=== PATIENT | male | born 1955 | race Caucasian/White ===

== ENCOUNTER 2017-03-29 09:33 | Observation (INO) | payer OTHER, BC ==
[~2017-03-29] VITALS: Ht 185.4 cm; Wt 120.0 kg
[2017-03-29] VITALS (9 sets, daily range): BP systolic 137–172; BP diastolic 70–88; PULSE 71–90; RESP 16–21; TEMP 97.7–98.4; O2SAT 93–99
[2017-03-29] MEDS ORDERED: SODIUM CHLORIDE 0.9% FLUSH 10 ML FLUSH IVF PRN (10:00)
[2017-03-29] MEDS ORDERED: ONDANSETRON HCL 4 MG/2 ML VIAL IV PUSH ONE (10:00)
[2017-03-29] MEDS ORDERED: MORPHINE SULFATE 8 MG/ML INJ IV PUSH ONE ×2 (10:00→12:00)
[2017-03-29 10:20] LABS: AUTOMATED NEUTROPHIL # 5.3 TH/MM3 (1.8-7.7); BASOPHIL % 0.4 % (0.0-2.0); EOSINOPHIL # 0.2 TH/MM3 (0-0.4); HEMATOCRIT 41.9 % (39.0-51.0); HEMO FLAGS DIFF FINAL; LYMPH % 17.1 % (9.0-44.0); LYMPHOCYTE # 1.3 TH/MM3 (1.0-4.8); MEAN CELL VOLUME 79.9 FL (80.0-100.0); MEAN CORPUSCULAR HEMOGLOBIN 25.9 PG (27.0-34.0); MEAN CORPUSCULAR HGB CONC 32.5 % (32.0-36.0); MONO % 8.7 % (0.0-8.0); NEUT % 70.8 % (16.0-70.0); PLATELET COUNT 212 TH/MM3 (150-450); RED BLOOD COUNT 5.24 MIL/MM3 (4.50-5.90); RED CELL DISTRIBUTION WIDTH 15.8 % (11.6-17.2); WHITE BLOOD COUNT 7.5 TH/MM3 (4.0-11.0)
[2017-03-29] MEDS ORDERED: LOSA100T2 PO (10:24)
[2017-03-29] MEDS ORDERED: VITA1000 PO (10:24)
[2017-03-29] MEDS ORDERED: ASPI81CH3 PO (10:24)
[2017-03-29] MEDS ORDERED: HUMALOG SQ (10:24)
[2017-03-29] MEDS ORDERED: METO25TA3 PO (10:24)
[2017-03-29] MEDS ORDERED: PLAV75TA29 PO (10:24)
[2017-03-29 10:25] LABS: ANION GAP 12 MEQ/L (5-15); BICARBONATE 23.2 MEQ/L (21.0-32.0); BLOOD UREA NITROGEN 9 MG/DL (7-18); CHLORIDE 103 MEQ/L (98-107); GLOMERULAR FILTRATION RATE 74 ML/MIN (>89); POTASSIUM 3.1 MEQ/L (3.5-5.1); SODIUM (NA) 138 MEQ/L (136-145)
[2017-03-29 10:27] LABS: APTT (PATIENT) 25.9 SEC (24.3-30.1); PROTHROMBIN TIME - PATIENT 11.4 SEC (9.8-11.6)
[2017-03-29 10:34] LABS: CREATINE KINASE 100 U/L (39-308)
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
[2017-03-29] MEDS ORDERED: LIDOCAINE HCL 2% PF 5 ML VIAL NERV BLOCK ONE (12:00)
[2017-03-29] MEDS ORDERED: PROMETHAZINE INJ 25 MG/ML VIAL IM ONE (12:00)
[2017-03-29] MEDS ORDERED: DIPHTH/TETANUS/ACEL PERTUSSIS (BOOSTER) 0.5 ML VIAL/PFS IM ONE (12:00)
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
[2017-03-29] MEDS ORDERED: ASPIRIN 325 MG TAB PO ONE (12:30)
[2017-03-29] MEDS ORDERED: CEPHALEXIN MONOHYDRATE 500 MG CAP PO ONE (12:45)
[2017-03-29] MEDS ORDERED: ASPIRIN EC 81 MG TABEC PO ONE (12:45)
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
[2017-03-29] MEDS ORDERED: POTASSIUM CHLORIDE 10 MEQ CONTROLLED RELEASE TAB PO ONE (13:00)
[2017-03-29] MEDS ORDERED: INSULIN HUMAN REGULAR 1,000 UNITS/10 ML VIAL IV PUSH ONE (13:00)
[2017-03-29] MEDS ORDERED: ACETAMINOPHEN 500 MG CPLT PO PRN (13:30)
[2017-03-29] MEDS ORDERED: NITROGLYCERIN 0.4 MG SL 25 TABS/BTL SL PRN (13:30)
[2017-03-29] MEDS ORDERED: ONDANSETRON HCL 4 MG/2 ML VIAL IV PRN (13:30)
[2017-03-29 14:35] LABS: CREATINE KINASE 121 U/L (39-308)
--- NOTE | 2017-03-29 14:44 | RADRPT ---
EXAM DATE/TIME: 03/29/2017 13:56 [facility] COMPARISON: WRIST RIGHT COMPLETE ([id number]), March 29, 2017, 10:29. INDICATIONS : Post reduction. MEDICAL HISTORY : None. SURGICAL HISTORY : None. ENCOUNTER: Initial ACUITY: 1 day PAIN SCORE: 0/10 LOCATION: Right wrist FINDINGS: 2 views of the right wrist were performed with splint material in place. There has been successful re duction of the previously seen displacement at the fracture site. Acute fractures are again noted inv olving the ulnar styloid as well as the distal radius. No angulation or distraction. CONCLUSION: Successful reduction of the displacement of the radial fracture as detailed above. Sean Ruiz Jr., MD on March 29, 2017 at 14:27 Board Certified Radiologist. This report was verified electronically.
[2017-03-29 14:47] LABS: CKMB 0.9 NG/ML (0.5-3.6)
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
[2017-03-29] MEDS ORDERED: GLUCAGON 1 MG/ML VIAL OTHER PRN (15:00)
[2017-03-29] MEDS ORDERED: DEXTROSE 50% IN WATER 50 ML VIAL(D50) IV PRN (15:00)
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
[2017-03-29] MEDS: INSULIN ASPART SUPPLEMENTAL SCALE SQ SCH ×2 (16:00→21:31)
[2017-03-29] MEDS: MORPHINE SULFATE 8 MG/ML INJ IV PUSH PRN ×2 (16:18→21:43)
[2017-03-29] MEDS ORDERED: AMLO10TA2 PO (16:40)
[2017-03-29] MEDS ORDERED: ATOR1TAB18 PO (16:40)
[2017-03-29] MEDS ORDERED: ALPR0.5T3 PO (16:40)
[2017-03-29] MEDS ORDERED: AZEL137S EACH NARE (16:44)
[2017-03-29] MEDS ORDERED: DAPA1TAB3 PO (16:44)
[2017-03-29] MEDS ORDERED: NOVOINJ3 SQ (16:44)
[2017-03-29] MEDS ORDERED: METF1000 PO (16:46)
[2017-03-29] MEDS ORDERED: TAMS0.4C4 PO (16:46)
[2017-03-29] MEDS ORDERED: INSU1.2I SQ (16:46)
--- NOTE | 2017-03-29 16:46 | EKG ---
Date Performed: 03/29/2017 Time Performed: 09:42:40 PTAGE: 61 years EKG: Sinus rhythm NONSPECIFIC T-WAVE ABNORMALITY BORDERLINE ECG NO PREVIOUS TRACING DOCTOR: Dimas Moscoso Interpretating Date/Time 03/29/2017 16:45:15
[2017-03-29] MEDS: NITROGLYCERIN 2% OINT 1 GM PACKET TOPICAL SCH (17:28)
[2017-03-29 17:52] LABS: CREATINE KINASE 152 U/L (39-308)
[2017-03-29 18:05] LABS: CKMB 1.3 NG/ML (0.5-3.6)
[2017-03-29] MEDS ORDERED: ATORVASTATIN 80 MG TAB PO SCH (21:00)
[2017-03-29] MEDS: METOPROLOL TARTRATE 25 MG TAB PO SCH (21:13)
[2017-03-29] MEDS: TAMSULOSIN HCL 0.4 MG CAP PO SCH (21:32)
[2017-03-29] MEDS: SODIUM CHLORIDE 0.9% FLUSH 10 ML FLUSH IV FLUSH SCH (21:32)
[2017-03-30] VITALS (10 sets, daily range): BP systolic 149–168; BP diastolic 83–87; PULSE 66–78; RESP 16–20; TEMP 98.1–99.4; O2SAT 92–100
[2017-03-30] MEDS: MORPHINE SULFATE 8 MG/ML INJ IV PUSH PRN ×3 (02:27→15:21)
[2017-03-30] MEDS: NITROGLYCERIN 2% OINT 1 GM PACKET TOPICAL SCH ×3 (02:29→17:26)
[2017-03-30] MEDS: INSULIN ASPART SUPPLEMENTAL SCALE SQ SCH ×4 (06:33→21:00)
[2017-03-30 08:40] LABS: BICARBONATE 28.8 MEQ/L (21.0-32.0); POTASSIUM 3.4 MEQ/L (3.5-5.1)
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
[2017-03-30] MEDS ORDERED: HYDROCHLOROTHIAZIDE 25 MG TAB PO SCH (09:00)
[2017-03-30] MEDS ORDERED: LOSARTAN 50 MG TAB PO SCH (09:00)
[2017-03-30] MEDS: METOPROLOL TARTRATE 25 MG TAB PO SCH ×2 (09:00→21:11)
[2017-03-30] MEDS: CLOPIDOGREL 75 MG TAB PO SCH (09:00)
[2017-03-30] MEDS ORDERED: ASPIRIN 325 MG TAB PO SCH (09:00)
[2017-03-30] MEDS ORDERED: HEPARIN-NS/PF INJ 500 ML ONE (09:58)
[2017-03-30] MEDS ORDERED: MIDAZOLAM HCL 2 MG/2 ML VIAL ONE ×2 (09:59→10:21)
[2017-03-30] MEDS ORDERED: HEPARIN SODIUM - IV 10,000 UNITS/10 ML VIAL ONE (10:50)
[2017-03-30] MEDS ORDERED: ATROPINE SULFATE 1 MG/ML VIAL IV PRN (11:30)
[2017-03-30] MEDS ORDERED: MISC INFORMATION XX ONE (11:30)
[2017-03-30] MEDS ORDERED: LORazepam 2 MG/ML VIAL IV PRN (11:30)
[2017-03-30] MEDS ORDERED: MORPHINE SULFATE 8 MG/ML INJ IV PUSH PRN (11:30)
[2017-03-30] MEDS ORDERED: ONDANSETRON HCL 4 MG/2 ML VIAL IV PRN (11:30)
[2017-03-30] MEDS ORDERED: LIDOCAINE HCL 1% 50 ML VIAL INFIL PRN (11:30)
[2017-03-30] MEDS ORDERED: cloNIDine HCL 0.2 MG TAB PO PRN (11:30)
[2017-03-30] MEDS ORDERED: SODIUM CHLOR 0.9% 250 ML INJ 250 ML IV PRN (11:30)
[2017-03-30] MEDS ORDERED: METOCLOPRAMIDE HCL 10 MG/2 ML VIAL IV PRN (11:30)
[2017-03-30] MEDS ORDERED: BACITRACIN OINT 0.9 GM PKT TOP ONE (11:30)
--- NOTE | 2017-03-30 11:30 | CATHPROC ---
[facility] HIS Report Study Information Study Number Admission Scheduled Start Study Start [id number] Mar 29 2017 12:42PM 03/30/2017 Mar 30 2017 9:37AM [facility] Cardiac Catheterization Admit Source Facility Department Emergency department [facility] - Web Administrator Physician and Clinical Staff Initial [facility] Huber Padilla,RAINA Recorder Mayuri Ny,RT(R) (BS) Scrub José Antonio McmillanRT(R) Procedures Performed Procedure Location (Site) Vessel Name Coronary Angiograms LCA Left Coronary Coronary Angiograms RCA Right Coronary Drug Eluting Inflatio LAD Mid Left Coronary L Heart Cath PTCA LAD Mid Left Coronary PTCA ADD ON'S Wire insertion Fem Art (right) Femoral Art Equipment Time Patient Registration Rep Description Size Mfg Part Number Used/Scraped COPILOT VALVE, BLEEDBACK [id number] 10:45 [employer] Used CONTROL *[id number] TRANSDUCER, TRUWAVE [id number] 09:59 GORE LAN * Used W/STOCKCOCK *[id number] 538-420 *[id number] 538-422 *[id number] 538-421 *[id number] *[id number] 11:14 DAIG/ST. LINDA MEDICAL ANGIOSEAL, FR6 VIP FR 6 Used *[id number] 09:59 MEDLINE INDUSTRIES PACK, CCL CUSTOM * Used *[id number] 09:59 MEDLINE PACER PEN, SKIN DUAL W/ RULER * Used *[id number] BALLOON, 3.0 X 12MM NC [id number] 11:10 MEDTRONIC 12MM Used EUPHORA *[id number] 11:03 MEDTRONIC BALLOON, 3.0 X 15MM EUPHORA 15MM Used *[id number] STENT, 3.0 15 RESOLUTE [id number] 11:07 MEDTRONIC 3.0 15 Used INTEGRITY RX *[id number] 10:57 [employer] MEDICAL 30 STEPHANIE INDEFLATOR Used *[id number] 10:46 [employer] MEDICAL SHEATH, FR6.5 PRELUDE 11CM FR 6.5 038ACT Used *[id number] 09:59 [employer] MEDICAL WIRE, 3MMJ .035 180CM 180CM Used *[id number] 09:59 NAMIC MANIFOLD, 4 PORT * Used *[id number] 09:59 [employer]COMED OMNIPAQUE, 350 MG, 150ML 150ML [id number] Used [id number] 09:59 [employer]LL[employer] MEDICAL BLANKET,WARM AIR CCL * Used *[id number] 10:19 TERUMO MEDICAL SHEATH, FR4 TERUMO (10CM) FR 4 [id number] Used 10:47 TERUMO MEDICAL SHEATH, FR6 TERUMO (10CM) FR 6 [id number] Used WIRE, RUNTHROUGH NS FLOPPY [id number] 11:00 TERUMO MEDICAL 180CM Used .014 180CM *[id number] 10:45 [employer]OL[employer] PRIME WIRE, VERRATA 185CM 185CM [id number] *[id number] Used Equipment Model, Serial, Lot Number and Expiration Data Description Model Number Serial Number Lot Number Expiration Date ANGIOSEAL, FR6 VIP [id number] 11-15-2017 BALLOON, 3.0 X 12MM MI [id number] 11-24-2018 EUPHORA PRIME WIRE, VERRATA 185CM [id number] 01-16-2020 STENT, 3.0 15 RESOLUTE [id number] 09-30-2018 INTEGRITY RX History: Current Medications Medication Dosage/Unit Route Frequency Last Date/Time Taken PLAVIX History: Allergies Allergy Reaction Ceftin HIVES Levaquin HIVES History: Risk Factors Family History of Hypertension Dyslipidemia Previous OR Previous Heart Failure Premature CAD Yes Yes Yes No No Prior Valve Prior PCI Prior PCIDate Prior CABG Surgery No Yes 01/16/2017 No Cerebrovascular Peripheral Artery Chronic Lung On Dialysis Diabetes Diabetes Therapy Disease Disease Disease No No No No Yes Oral History: Stress Tests Stress or Imaging Studies Performed No History: Other Current Smoker No Labs Hgb (g/dl) Hct (%) WBC (l/cumm) Platelets (thousands) 11.60-17.00 35.00-51.00 4.00-11.00 150.00-450.00 13.6 41.9 7.5 212 Glucose (mg/dl) BUN (mg/dl) Creatinine (mg/dl) BUN:Creatinine (1:x) 74.00-106.00 7.00-18.00 0.50-1.30 10.00-20.00 163 11 0.8 13.8 Na (meq/l) K (meq/l) 136.00-145.00 3.50-5.10 140 3.4 INR (PTT:PT) 0.90-1.10 1 Troponin I (ng/ml) CPK-MB (ng/ML) 0.02-0.05 0.50-3.60 0.02 Not Drawn Medication Medication Total Dose (Bolus/Oral) Medication Total Dosage/Unit 1% XYLOCAINE 20 mL FENTANYL 100 mcg HEPARIN 8000 units NTG (IC) 300 mcg PLAVIX 600 mg VERSED 4 mg Medications (Bolus/Oral) Medication Time Given Dosage/Unit Administered By Reason VERSED 03/30/2017 10:11:43 AM 1 mg Ferlitto, Huber 1 mg VERSED given in lab by Huber Padilla RN in Left Forearm via Peripheral IV. FENTANYL 03/30/2017 10:12:40 AM 25 mcg Huber Padilla 25 mcg FENTANYL given in lab by Huber Padilla RN in Left Forearm via Peripheral IV. VERSED 03/30/2017 10:16:03 AM 1 mg FerCait kaplaney 1 mg VERSED given in lab by Huber Padilla RN in Left Forearm via Peripheral IV. FENTANYL 03/30/2017 10:16:15 AM 25 mcg Huber Padilla 25 mcg FENTANYL given in lab by Huber Padilla RN in Left Forearm via Peripheral IV. 1% XYLOCAINE 03/30/2017 10:17:16 AM 20 mL Nico Garcia 20 mL 1% XYLOCAINE given in lab by Nico Garcia in Right Groin via Subcutaneous. VERSED 03/30/2017 10:34:13 AM 1 mg Huber Padilla 1 mg VERSED given in lab by Huber Padilla RN in Left Forearm via Peripheral IV. FENTANYL 03/30/2017 10:34:16 AM 25 mcg Huber Padilla 25 mcg FENTANYL given in lab by Huber Padilla RN in Left Forearm via Peripheral IV. HEPARIN 03/30/2017 10:50:39 AM 5000 units Huber Padilla 5000 units HEPARIN given in lab by Huber Padilla RN in Left Forearm via Peripheral IV. HEPARIN 03/30/2017 10:57:59 AM 3000 units Huber Padilla 3000 units HEPARIN given in lab by Huber Padilla RN in Left Forearm via Peripheral IV. VERSED 03/30/2017 11:11:21 AM 1 mg Huber Padilla 1 mg VERSED given in lab by Huber Padilla RN in Left Forearm via Peripheral IV. FENTANYL 03/30/2017 11:11:30 AM 25 mcg Huber Padilla 25 mcg FENTANYL given in lab by Huber Padilla RN in Left Forearm via Peripheral IV. NTG (IC) 03/30/2017 11:13:04 AM 300 mcg Nico Garcia 300 mcg NTG (IC) given in lab by Nico Garcia in Right Groin via Intra-coronary. PLAVIX 03/30/2017 11:26:39 AM 600 mg Huber Padilla 600 mg PLAVIX given in lab by Huber Padilla RN via Oral. Medication (Drip) Medication Time Given Dosage/Unit Concentration/Unit Diluent (ml) Solutio n IV Solutions 03/30/2017 9:52:54 AM 0 mL (IV) 500 NaCl .9 IV Solutions given in lab by Huber Padilla RN in Left Forearm via Peripheral IV. Pump/Drip Flow = 2 0 ml/hr using NaCl .9. Initial Case Assessment Cardiovascular HR Rhythm NIBP Chest Pain 78 Sinus 152/90 0 Edema Present Skin color Skin None Normal Warm Dry Circulatory - Right Pulses Dorsalis Pedis Femoral 2 2 Scale (0,1,2,3,4,d) Circulatory - Left Pulses Dorsalis Pedis Femoral 2 2 Scale (0,1,2,3,4,d) Circulatory - Lower Extremities Color Lower Right Color Lower Left Normal Normal Neurological State Oriented to time-place- Alert Moves all extremities person Respiration - General Respiration Rate SpO2 (%) O2 (lpm) (B/min) 13 92 0 Chronological Log Time Study Chronological Log 9:39:17 Patient arrived via Bed. 9:39:17 Patient Name, D.O.B, / Armband Verified By R.N. 9:39:18 Consent signed by the physician and the patient and verified by the Web Administrator staff. 9:51:10 Pre-op and post- op instructions given; patient acknowledges understanding of instructions. 9:51:12 Verbal Stimulation=2 Physical Stimulation=2 Airway=2 Respiration=2 TOTAL=8. (0=absent, 1=li mited, 2=present) 9:51:33 Presedation assessment performed by Web Administrator RN. 9:51:45 Patient has been NPO for More than 6Hrs. 9:51:46 Skin Breakdown-none per patient. 9:52:24 Patient Warmer Placed on the Table. 9:52:27 Karyna Prominences Protected 9:52:48 A # 20 IV was noted in the Forearm (left). Grade = 0 IV Solutions given in lab by Huber Padilla, RN in Left Forearm via Peripheral IV. Pump/Drip Fl ow = 20 ml/hr using NaCl 9:52:54 .9. 9:53:15 History and physical on the chart or being dictated. Assessment: Initial Case, HR=78 BPM, Rhythm=Sinus, TLRY=885/90 mmhg, Chest Pain=0, Edema=None, Color=Normal, Skin = Warm, Dry Right Pulses: Jordan Ped=2, Femoral=2 Left Pulses: Jordan Ped=2, Femoral=2 9:53:16 Lower Right Extremities: Color=Normal Lower Left Extremities: Color=Normal Neurological: State=Alert, Ox3, MITCHELL Respiration: Resp=13 B/min, SpO2=92 %, O2=0 lpm 9:53:24 Reference ECG taken Vitals capture started with the following parameters, Patient=Adult, Interval=5 min, Initial Pr drqbce=149 mmHg, 9:55:01 Deflation Rate=5 mmHg 9:56:10 HR=42 bpm, SMIF=563/90 mmhg, SpO2=90.0 %, Resp=13 B/min, Pain=0, Reina=10, Carrasco=2 9:59:26 Bilateral groins prepped with 2% chlorhexidine, and with a 3 min. waiting time. 10:00:36 HR=78 bpm, KBMZ=402/89 mmhg, SpO2=92.0 %, Resp=10 B/min, Pain=0, Reina=10, Carrasco=2 10:05:39 HR=76 bpm, RRIL=547/95 mmhg, SpO2=91.0 %, Resp=11 B/min, Pain=0, Reina=10, Carrasco=2 10:06:12 Pressure channel 1 zeroed. 10:10:40 HR=75 bpm, NRVI=470/92 mmhg, SpO2=93.0 %, Resp=12 B/min, Pain=0, Reina=10, Carrasco=2 10:11:43 1 mg VERSED given in lab by Huber Padilla RN in Left Forearm via Peripheral IV. 10:12:40 25 mcg FENTANYL given in lab by Huber Padilla RN in Left Forearm via Peripheral IV. 10:15:41 HR=76 bpm, ZYWG=546/94 mmhg, SpO2=90.0 %, Resp=10 B/min, Pain=0, Reina=10, Carrasco=2 10:16:03 1 mg VERSED given in lab by Huber Padilla RN in Left Forearm via Peripheral IV. 10:16:15 25 mcg FENTANYL given in lab by Huber Padilla RN in Left Forearm via Peripheral IV. Time Out. Correct patient, correct procedure,correct physician, power injector not loaded with contrast with surgical 10:16:57 team present. Time Out Concurred by MD, individual staff in procedure 10:17:14 Case Start 10:17:16 20 mL 1% XYLOCAINE given in lab by Nico Garcia in Right Groin via Subcutaneous. 10:20:42 HR=71 bpm, KDMK=857/86 mmhg, SpO2=87.0 %, Resp=12 B/min, Pain=0, Reina=10, Carrasco=2 10:25:39 HR=68 bpm, YZQI=395/91 mmhg, SpO2=89.0 %, Resp=19 B/min, Pain=0, Reina=10, Carrasco=2 10:28:38 Access site was Right Femoral Artery. 10:28:44 A SHEATH, FR4 TERUMO (10CM) FR 4 was advanced into the Fem Art (right) using the Percutaneo us technique. A JL 4.0 INFINITI CATHETER FR 4 was advanced over a wire. OMNIPAQUE, 350 MG, 150ML 150ML was us ed for 10:29:54 injections. 10:30:40 HR=74 bpm, WOSH=162/95 mmhg, SpO2=92.0 %, Resp=15 B/min, Pain=0, Reina=10, Carrasco=2 Recorded Pressure: Ao, HR=71, Condition=Condition 1 10:31:37 (Aorta) Ao 145/77/106 10:32:34 The LCA was injected and visualized at various angles. OMNIPAQUE, 350 MG, 150ML 150ML used . 10:34:13 1 mg VERSED given in lab by Huber Padilla RN in Left Forearm via Peripheral IV. 10:34:16 25 mcg FENTANYL given in lab by Huber Padilla RN in Left Forearm via Peripheral IV. After removing the current catheter a JL 5.0 INFINITI CATHETER FR 4 was advanced over a WIRE, 3 MMJ .035 180CM 10:35:34 180CM. 10:35:43 HR=73 bpm, DIZK=321/88 mmhg, SpO2=93.0 %, Resp=11 B/min, Pain=0, Reina=10, Carrasco=2 10:37:42 The LCA was injected and visualized at various angles. contrast used. 10:40:42 HR=72 bpm, OMCH=124/86 mmhg, SpO2=93.0 %, Resp=18 B/min, Pain=0, Reina=10, Carrasco=2 After removing the current catheter a JR 4.0 INFINITI CATHETER FR 4 was advanced over a WIRE, 3 MMJ .035 180CM 10:41:12 180CM. 10:42:58 The RCA was injected and visualized at various angles. OMNIPAQUE, 350 MG, 150ML 150ML used . 10:45:11 A sheath was exchanged in the Fem Art (right). This was necessary in order ~REASON~. A SHEATH, FR6.5 PRELUDE 11CM FR 6.5 was exchanged in the Fem Art (right). This was necessary in order to 10:45:32 accomodate a larger catheter. 10:45:41 HR=73 bpm, YCXR=546/95 mmhg, SpO2=92.0 %, Resp=10 B/min, Pain=0, Reina=10, Carrasco=2 10:46:59 Pressure channel 1 zeroed. A XB 4.0 GUIDE CATHETER FR 6 was advanced over a wire. OMNIPAQUE, 350 MG, 150ML 150ML was used for 10:47:51 injections. 10:50:39 5000 units HEPARIN given in lab by Huber Padilla RN in Left Forearm via Peripheral IV. 10:50:44 HR=75 bpm, ZDVS=981/96 mmhg, SpO2=91.0 %, Resp=17 B/min, Pain=0, Reina=10, Carrasco=2 10:50:54 A PRIME WIRE, VERRATA 185CM 185CM was inserted via Fem Art (right). 10:53:50 Flow Wire was was placed in the LAD Mid. The IFR measures 0.89 Percent. 10:55:48 HR=74 bpm, OUEU=769/89 mmhg, SpO2=91.0 %, Resp=15 B/min, Pain=0, Reina=10, Carrasco=2 10:56:49 OMNIPAQUE, 350 MG, 150ML 150ML and 30 STEPHANIE INDEFLATOR added. 10:57:59 3000 units HEPARIN given in lab by Huber Padilla RN in Left Forearm via Peripheral IV. 11:00:12 The PRIME WIRE, VERRATA 185CM 185CM was removed. 11:00:45 HR=72 bpm, BCOU=884/101 mmhg, SpO2=93.0 %, Resp=5 B/min, Pain=0, Reina=10, Carrasco=2 11:01:20 A WIRE, RUNTHROUGH NS FLOPPY .014 180CM 180CM was inserted via Fem Art (right). A BALLOON, 3.0 X 15MM EUPHORA 15MM was inserted over WIRE, RUNTHROUGH NS FLOPPY .014 180CM 180C M via 11:01:27 the Fem Art (right). A balloons over a WIRE, RUNTHROUGH NS FLOPPY .014 180CM 180CM in the LAD Mid was inflated using a 30 STEPHANIE 11:02:20 INDEFLATOR at 8 stephanie for 30 sec. A balloons over a WIRE, RUNTHROUGH NS FLOPPY .014 180CM 180CM in the LAD Mid was inflated using a 30 STEPHANIE 11:03:46 INDEFLATOR at 8 stephanie for 30 sec. 11:05:32 Activated Clotting Time Drawn 11:05:50 HR=71 bpm, SXKM=854/102 mmhg, SpO2=90.0 %, Resp=11 B/min, Pain=0, Reina=10, Carrasco=2 11:06:09 Balloon Removed A STENT, 3.0 15 RESOLUTE INTEGRITY RX 3.0 15 was advanced through a XB 4.0 GUIDE CATHETER FR 6 over a 11:07:28 WIRE, RUNTHROUGH NS FLOPPY .014 180CM 180CM. 11:08:37 A implantable was deployed using a 30 STEPHANIE INDEFLATOR at 16 atmospheres for 15 seconds in th e LAD Mid. 11:09:19 Re-inflated the stent balloon in the LAD Mid to 16 STEPHANIE for 20 seconds. 11:10:21 ACT (Normal Range 90-180) = 251 11:10:38 Delivery device removed 11:10:49 HR=71 bpm, PUSV=075/99 mmhg, SpO2=91.0 %, Resp=9 B/min, Pain=0, Reina=10, Carrasco=2 A BALLOON, 3.0 X 12MM NC EUPHORA 12MM was inserted over WIRE, RUNTHROUGH NS FLOPPY .014 180CM 1 80CM 11:11:04 via the Fem Art (right). 11:11:21 1 mg VERSED given in lab by Huber Padilla RN in Left Forearm via Peripheral IV. A BALLOON, 3.0 X 12MM NC EUPHORA 12MM over a WIRE, RUNTHROUGH NS FLOPPY .014 180CM 180CM in the LAD 11:11:28 Mid was inflated using a 30 STEPHANIE INDEFLATOR at 18 stephanie for 20 sec. 11:11:30 25 mcg FENTANYL given in lab by Huber Padilla RN in Left Forearm via Peripheral IV. 11:12:28 Balloon Removed. 11:13:04 300 mcg NTG (IC) given in lab by Nico Garcia in Right Groin via Intra-coronary. 11:15:22 An injection in the Fem Art (right) was made through the SHEATH, FR6 TERUMO (10CM) FR 6. 11:15:52 HR=74 bpm, RVMH=886/87 mmhg, SpO2=87.0 %, Resp=16 B/min, Pain=0, Reina=10, Carrasco=2 11:16:26 ANGIOSEAL, FR6 VIP FR 6 placement in the Fem Art (right) 11:17:40 Case End 11:17:48 Catheter(s) removed without difficulty 11:18:08 No case complications noted. 11:18:09 Cine recording checked. 11:18:23 Bedside Report will be given. 11:18:24 Implantable Device card placed in patient's chart. 11:18:27 Contrast Scanned 11:18:29 A Left Heart Cath was performed. 11:21:26 HR=68 bpm, LZTZ=565/94 mmhg, SpO2=89.0 %, Resp=11 B/min, Pain=0, Reina=10, Carrasco=2 11:21:35 Sterile dressing applied to site 11:25:46 Vitals capture stopped. 11:26:39 600 mg PLAVIX given in lab by Huber Padilla RN via Oral. 11:29:11 Patient moved to [facility] End Study - Contrast Media Used In Study Contrast Total Opened (mL) Total Used (mL) Total Wasted (mL) Omnipaque 130 130 0 End Study - Maximum Contrast Load Max Contrast Load (mL) 750.0 End Study - Radiation Exposure Fluoro Time (minutes) 7.0 End Study - Sheaths Sheaths Pulled By Sheath Hold Time (min) Minor, Nico End Study - Patient Disposition Complications Transferred To Interventional Outcome No Web Administrator Holding successful
[2017-03-30] MEDS ORDERED: CLOPIDOGREL 300 MG TAB ONE (11:36)
--- NOTE | 2017-03-30 12:10 | MA ---
cc: JOSE A KENNEDY DATE 03/30/2017 INDICATION Unstable angina. PROCEDURE PERFORMED 1. Fluoroscopy with interpretation. 2. Coronary angiography. 3. Pressure derived fractional flow reserve measurement of the left anterior descending coronary artery. 4. Percutaneous intervention with drug-eluting stent to the mid left anterior descending coronary artery. METHOD Risks, benefits and alternatives were discussed with the patient. The patient understood, consented to the procedure. The patient brought to the catheterization lab, placed on the catheterization table. The right groin was prepped and draped in a sterile fashion. The right groin was anesthetized with 2% lidocaine. A 4-S[place] Arabian sheath was placed without difficulty. CORONARY ANGIOGRAPHY 1. Left main coronary has minor luminal irregularities. 2. Left anterior descending coronary artery has heavy calcium present through the proximal and mid-segment. There is a stent in the mid segment. In the proximal left anterior descending coronary there is a 30% stenosis in the mid-segment just prior to the stent. There appears to be a 70-75% stenosis. The remainder of the vessel has minor luminal irregularities except at the apex which also has diffuse disease. 3. Circumflex: Gives rise to a ramus intermedius branch which has minor luminal irregularities. A second obtuse marginal branch was smaller caliber in size, has a 50% stenosis. 4. The right coronary is a dominant vessel giving rise to a posterolateral branch. The right coronary is patent to the level of the posterolateral branch which has diffuse disease. PRESSURE DERIVED FRACTIONAL FLOW RESERVE Measurement of the left anterior descending coronary artery. A 6-S[place] Arabian sheath was placed. A 6-S[place] Arabian XB 4.0 guide catheter was engaged in the left main coronary artery. A pressure wire was then prepped and advanced to the distal catheter tip and normalized the wire was carefully navigated down to beyond the mid-left anterior descending coronary stenosis and IFR performed. IFR RESULT 0.89 was obtained on multiple runs. This would be consistent with hemodynamically significant mid-left anterior descending coronary stenosis. A 2.5 x 50-mm balloon was then deployed in the mid-left anterior descending coronary artery with two sequential inflations with suboptimal result. A 3.0 x 15-mm RX Resolute drug-eluting stent was advanced to the mid-left anterior descending coronary and deployed it was postdilated with a 3.0 x 12 mm RX NC Euphora balloon to 20 atmospheres. Repeat angiography showed no residual stenosis, GEE-3 flow. Right common femoral angiography confirmed good access site and a 6-S[place] sheath Angio-Seal was deployed with good hemostasis. CONCLUSION 1. Severe mid-left anterior descending coronary stenosis confirmed by hemodynamically significant pressure derived fractional flow reserve measurement. 2. Successful percutaneous intervention with drug-eluting stent to the mid-left anterior descending coronary artery. PLAN The patient will be continued on with advanced medical therapy which includes aspirin, statin, beta nathan. We will add a long-acting nitrate. Will monitor groin for any post-procedural complications. He will be followed by [facility] during the admission. Anticipate discharge hopefully tomorrow. MD LUBNA Hanna/[place] /11:34 AM 11:56 AM
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
--- NOTE | 2017-03-30 13:25 | EKG ---
Date Performed: 03/29/2017 Time Performed: 13:42:48 PTAGE: 61 years EKG: Sinus rhythm NORMAL ECG PREVIOUS TRACING : 03/29/2017 09.42 Since previous tracing, no significant change noted DOCTOR: Rhys Nolasco Interpretating Date/Time 03/30/2017 13:20:01
--- NOTE | 2017-03-30 13:25 | EKG ---
Date Performed: 03/29/2017 Time Performed: 18:59:51 PTAGE: 61 years EKG: Sinus rhythm NORMAL ECG NO PREVIOUS TRACING DOCTOR: Rhys Nolasco Interpretating Date/Time 03/30/2017 13:18:44
--- NOTE | 2017-03-30 13:25 | EKG ---
Date Performed: 03/29/2017 Time Performed: 16:29:44 PTAGE: 61 years EKG: Sinus rhythm NORMAL ECG PREVIOUS TRACING : 03/29/2017 13.42 Since previous tracing, no significant change noted DOCTOR: Rhys Nolasco Interpretating Date/Time 03/30/2017 13:23:15
[2017-03-30] MEDS ORDERED: IOHEXOL 350 MG/ML 50 ML BTL (for Cath Lab) OTHER ONE (15:23)
[2017-03-30] MEDS ORDERED: IOHEXOL 350 MG/ML 100 ML BTL (for Cath Lab) OTHER ONE (15:23)
[2017-03-30] MEDS: ATORVASTATIN 40 MG TAB PO SCH (17:25)
[2017-03-30] MEDS: SODIUM CHLORIDE 0.9% FLUSH 10 ML FLUSH IV FLUSH SCH ×2 (21:00→21:11)
[2017-03-30] MEDS: TAMSULOSIN HCL 0.4 MG CAP PO SCH (21:11)
[2017-03-30] MEDS ORDERED: HYDROmorphone HCL PF 1 MG/ML VIAL SQ PRN (23:00)
[2017-03-31] VITALS (14 sets, daily range): BP systolic 144–158; BP diastolic 80–82; PULSE 53–88; RESP 16–18; TEMP 98–98.2; O2SAT 94–98
[2017-03-31] MEDS: NITROGLYCERIN 2% OINT 1 GM PACKET TOPICAL SCH ×2 (06:52)
[2017-03-31] MEDS: INSULIN ASPART SUPPLEMENTAL SCALE SQ SCH ×2 (06:59→11:00)
--- NOTE | 2017-03-31 08:05 | PD.CARD.PN ---
Subjective Subjective Remarks no complaints doing well sitting up in chair Objective Medications Active Medications Amlodipine Besylate (Norvasc) 10 mg DAILY PO Last administered on 03/30/17 09: 00; Admin Dose 10 MG; Start 03/30/17 at 09:00 Aspirin (Aspirin Chew) 81 mg DAILY PO; Start 03/31/17 at 09:00 Aspirin (Aspirin) 325 mg DAILY PO; Start 03/30/17 at 09:00; Stop 03/30/17 at 11: 33; Status DC Atorvastatin Calcium (Lipitor) 40 mg DAILY PO Last administered on 03/30/17 17: 25; Admin Dose 40 MG; Start 03/30/17 at 11:45 Atropine Sulfate 0.5 mg 0.5 mg UNSCH PRN IV; Start 03/30/17 at 11:30 Bacitracin (Bacitracin Oint Packet) 0.9 gm ONCE ONCE TOP Last administered on 11:30; Admin Dose 0.9 GM; Start 03/30/17 at 11:30; Stop 03/30/17 at 11: 32; Status DC Clonidine (Catapres) 0.2 mg Q6H PRN PO Last administered on 03/30/17 13:20; Admin Dose 0.2 MG; Start 03/30/17 at 11:30 Clopidogrel Bisulfate (Plavix) 75 mg DAILY PO; Start 03/30/17 at 09:00 Clopidogrel Bisulfate (Plavix) 600 mg STK-MED ONCE .ROUTE Last administered on 11:36; Admin Dose 600 MG; Start 03/30/17 at 11:36; Stop 03/30/17 at 11: 37; Status DC Fentanyl Citrate (fentaNYL INJ) 100 mcg STK-MED ONCE .ROUTE Last administered on 03/30/17 09:59; Admin Dose 100 MCG; Start 03/30/17 at 09:59; Stop 03/30/17 at 10:00; Status DC Heparin Sodium (Porcine) (Heparin Inj) 10,000 units STK-MED ONCE .ROUTE Last administered on 03/30/17 10:50; Admin Dose 10,000 UNITS; Start 03/30/17 at 10: 50; Stop 03/30/17 at 10:51; Status DC Heparin Sodium/ Sodium Chloride (Heparin-NS/Pf Inj) 500 ml @ As Directed STK- MED ONCE .ROUTE Last administered on 03/30/17 09:58; Admin Dose 0 MLS/HR; Start 03/30/17 at 09:58; Stop 03/30/17 at 09:59; Status DC Hydrochlorothiazide 25 mg 25 mg DAILY PO; Start 03/30/17 at 09:00; Stop at 11:33; Status DC Hydromorphone HCl (Dilaudid Pf Inj) 0.2 mg Q3H PRN SQ; Start 03/30/17 at 23:00 Iohexol (OMNIPAQUE 350 INJ (In Home [employer] Consultant)) 50 ml STK-MED ONCE OTHER; Start 03/30/17 at 15:23; Stop 03/30/17 at 15:24; Status DC Iohexol (OMNIPAQUE 350 INJ (In Home Sales Consultant)) 100 ml STK-MED ONCE OTHER; Start at 15:23; Stop 03/30/17 at 15:24; Status DC Lidocaine HCl (Xylocaine 1% Inj (50 ml)) 10 ml UNSCH PRN INFIL; Start 03/30/17 at 11:30; Stop 03/31/17 at 11:29 Lorazepam (Ativan Inj) 0.5 mg UNSCH PRN IV; Start 03/30/17 at 11:30; Stop 03/31 at 11:29 Losartan Potassium (Cozaar) 100 mg DAILY PO; Start 03/30/17 at 09:00; Stop 03/30 at 11:33; Status DC Metoclopramide HCl (Reglan Inj) 10 mg Q4H PRN IV; Start 03/30/17 at 11:30 Midazolam HCl (Versed Inj) 2 mg STK-MED ONCE .ROUTE Last administered on 09:59; Admin Dose 2 MG; Start 03/30/17 at 09:59; Stop 03/30/17 at 10:00; Status DC Midazolam HCl (Versed Inj) 2 mg STK-MED ONCE .ROUTE Last administered on 10:21; Admin Dose 2 MG; Start 03/30/17 at 10:21; Stop 03/30/17 at 10:22; Status DC Miscellaneous Information 1 ONCE ONCE XX; Start 03/30/17 at 11:30; Stop at 11:32; Status DC Morphine Sulfate (Morphine Inj) 2 mg Q30M PRN IV PUSH; Start 03/30/17 at 11:30 ; Stop 03/30/17 at 23:00; Status DC Ondansetron HCl (Zofran Inj) 4 mg Q4H PRN IV; Start 03/30/17 at 11:30 Sodium Chloride (NS 250 ml Inj) 250 ml @ 500 mls/hr ONCE PRN IV; Start at 11:30; Stop 03/31/17 at 11:29 Vital Signs / I&O Vital Signs Date Time Temp Pulse Resp B/P Pulse Ox O2 Delivery O2 Flow Rate FiO2 03/31/17 07:41 88 03/31/17 07:01 146/81 03/31/17 05:00 64 03/31/17 04:44 98 21 03/31/17 04:26 98.2 64 16 158/82 94 03/31/17 04:00 54 03/31/17 03:58 98 21 03/31/17 03:00 53 03/31/17 02:00 62 03/31/17 01:07 98 21 03/31/17 01:00 70 03/31/17 00:00 70 03/30/17 23:00 98.1 66 16 155/87 95 03/30/17 23:00 66 03/30/17 22:18 97 21 03/30/17 22:00 70 03/30/17 21:00 72 03/30/17 20:00 70 03/30/17 20:00 98.1 68 16 149/83 93 03/30/17 19:00 70 03/30/17 11:44 95 Room Air I/O 03/30/17 03/30/17 03/30/17 03/31/17 03/31/17 03/31/17 07:00 15:00 23:00 07:00 15:00 23:00 Intake Total 960 ml Balance 960 ml Intake Oral 960 ml # Voids 2 Physical Exam GENERAL: SKIN: Warm and dry. HEAD: Normocephalic. EYES: No scleral icterus. No injection or drainage. NECK: Supple, trachea midline. No JVD or lymphadenopathy. CARDIOVASCULAR: Regular rate and rhythm without murmurs, gallops, or rubs. RESPIRATORY: Breath sounds equal bilaterally. No accessory muscle use. GASTROINTESTINAL: Abdomen soft, non-tender, nondistended. MUSCULOSKELETAL: No cyanosis, or edema. BACK: Nontender without obvious deformity. No CVA tenderness. Imaging Last Impressions Wrist X-Ray 03/29/17 Signed Impressions: Service Date/Time: Wednesday, March 29, 2017 13:56 - CONCLUSION: Successful reduction of the displacement of the radial fracture as detailed above. Sean Ruiz Jr., MD Radius/Ulna X-Ray 03/29/17 Signed Impressions: Service Date/Time: Wednesday, March 29, 2017 10:39 - CONCLUSION: Displaced angulated distal radial fracture and ulnar styloid fracture. Michael Mary MD Head CT 03/29/17 Signed Impressions: Service Date/Time: Wednesday, March 29, 2017 14:51 - CONCLUSION: Probable small calcified meningioma left CP angle and no acute process. Michael Mary MD Hand X-Ray 03/29/17 Signed Impressions: Service Date/Time: Wednesday, March 29, 2017 10:23 - CONCLUSION: Distal radial fracture. Michael Mary MD Chest X-Ray 03/29/17 Signed Impressions: Service Date/Time: Wednesday, March 29, 2017 11:07 - CONCLUSION: 1. No acute cardiopulmonary findings identified. Kelvin Leach MD Cervical Spine X-Ray 03/29/17 Signed Impressions: Service Date/Time: Wednesday, March 29, 2017 10:49 - CONCLUSION: 1. No acute cervical fracture identified. Kelvin Leach MD Assessment and Plan Assessment and Plan unstable angina - PCI mid LAD WILLY. doing well. plan for dc today. asa plavix statin isosorbide fu in [facility] Nico Garcia MD Mar 31, 2017 08:04
[2017-03-31] MEDS: ATORVASTATIN 40 MG TAB PO SCH (08:27)
[2017-03-31] MEDS: SODIUM CHLORIDE 0.9% FLUSH 10 ML FLUSH IV FLUSH SCH (08:32)
[2017-03-31] MEDS: CLOPIDOGREL 75 MG TAB PO SCH (08:41)
[2017-03-31] MEDS: METOPROLOL TARTRATE 25 MG TAB PO SCH (08:41)
[2017-03-31] MEDS ORDERED: ASPIRIN 81 MG CHEW TAB PO SCH (09:00)
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
[2017-03-31] MEDS ORDERED: ISOS60TA PO (11:28)
[2017-03-31] MEDS ORDERED: POTASSIUM CHLORIDE 10 MEQ CONTROLLED RELEASE TAB PO ONE (11:45)
[2017-03-31] MEDS ORDERED: PERC5TAB12 PO (14:23)
[2017-04-01] MEDS ORDERED: ISOSORBIDE MONONITRATE 60 MG TAB PO SCH (07:00)
== END 2017-03-31 15:00 | disposition home or self-care (01) ==
LOC: NEPC 09:33 → NEDA 12:42 → NEPGCP 15:16 → HCIS 03-30 12:54
PROVIDERS: ADMIT Internal Medicine; ATTEND Internal Medicine
DX: R07.89 Other chest pain (principal); I25.10 Atherosclerotic heart disease of native coronary artery without angina pectoris; I10 Essential (primary) hypertension; E11.9 Type 2 diabetes mellitus without complications; S52.501A Unspecified fracture of the lower end of right radius, initial encounter for closed fracture; S52.611A Displaced fracture of right ulna styloid process, initial encounter for closed fracture; E87.6 Hypokalemia; I11.9 Hypertensive heart disease without heart failure; I51.7 Cardiomegaly; R42 Dizziness and giddiness; R61 Generalized hyperhidrosis; R51 Headache; R11.0 Nausea; R39.15 Urgency of urination; R94.31 Abnormal electrocardiogram [ECG] [EKG]; I25.110 Atherosclerotic heart disease of native coronary artery with unstable angina pectoris; M47.892 Other spondylosis, cervical region; E78.5 Hyperlipidemia, unspecified; N40.0 Benign prostatic hyperplasia without lower urinary tract symptoms; Z79.02 Long term (current) use of antithrombotics/antiplatelets; Z79.899 Other long term (current) drug therapy; Z95.5 Presence of coronary angioplasty implant and graft; Z79.4 Long term (current) use of insulin; Z79.82 Long term (current) use of aspirin; V43.52XA Car driver injured in collision with other type car in traffic accident, initial encounter; Y92.410 Unspecified street and highway as the place of occurrence of the external cause
CPT/HCPCS: 70450; 71020; 72050; 73090; 73100; 73110; 73130; 80048; 82550; 82552; 82948; 83735; 84132; 84484; 85002; 85025; 85610; 85730; 90471; 90715; 92928; 93005; 93454; 93571; 94002; 96372; 96374; 96375; 96376; 99285; C1725; C1760; C1769; C1874; C1887; C1893; G0269; G0378; J1644; J1815; J2250; J2270; J2405; J2550; J3010; 93306; Q9967